=== PATIENT | female | born 1990 | race African-American/Black ===

== ENCOUNTER 2019-04-28 21:24 | Emergency (ER) | payer OTHER ==
[~2019-04-28] VITALS: Ht 152.4 cm; Wt 54.4 kg
[2019-04-29] MEDS ORDERED: ALLEGRA ALLERG180 MG PO (01:48)
[2019-04-29] MEDS ORDERED: ORASEP SPRAY30 ML MM (01:48)
== END 2019-04-29 02:04 ==
LOC: ER 21:24
DX: B34.9 Viral infection, unspecified (principal)

== ENCOUNTER 2022-01-18 07:13 | Emergency (ER) | payer OTHER ==
[~2022-01-18] VITALS: Ht 152.4 cm; Wt 73.0 kg
[~2022-01-18 07:13] MED LIST: ALLEGRA ALLERG180 MG PO; ORASEP SPRAY30 ML MM
[2022-01-18] MEDS ORDERED: PRENATAL TABLE1 EAC3 PO (07:52)
[2022-01-18] MEDS ORDERED: SKELAGESIC TOP (09:56)
== END 2022-01-18 10:02 ==
LOC: ER 07:13
DX: O26.893 Other specified pregnancy related conditions, third trimester (principal); Z3A.28 28 weeks gestation of pregnancy; G56.03 Carpal tunnel syndrome, bilateral upper limbs